=== PATIENT | female | born 1990 | race Caucasian/White ===

== ENCOUNTER 2018-10-17 10:53 | Inpatient (IN) | payer BC ==
[2018-10-18] MEDS ORDERED: Sodium Chloride 0.9% 10 ML Syringe FLUSH PRN (00:54)
[2018-10-18] MEDS ORDERED: Citric Acid/Sodium Citrate Solution 30 ML Cup PO ONE ×2 (00:54→06:30)
[2018-10-18] MEDS ORDERED: Metoclopramide 10 MG/2 ML SDV IVPUSH ONE ×2 (00:54→06:30)
[2018-10-18] MEDS ORDERED: Oxytocin/Lactated Ringers 10 UNIT/1,000 ML BAG IV SCH (01:00)
[2018-10-18] MEDS: Lactated Ringers 1,000 ML IV SCH ×2 (06:51→07:18)
[2018-10-18] MEDS ORDERED: ceFAZolin 2 GM in Premix Bag 1 BAG IV ONE (07:00)
--- NOTE | 2018-10-18 07:01 | PCM.OPNOTE ---
- General Post-Op/Procedure Note Date of Surgery/Procedure: 10/18/18 Operative Procedure(s): Primary low transverse Findings: Baby boy in a breech presentation. APGARS of 9 & 9. Weight of 8 lbs 3 oz. Normal appearance of the uterus, fallopian tubes, and ovaries. Pre Op Diagnosis: 39 weeks gestation. 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 Speed/safety of procedure. Pathology: Cord blood collected. Placenta discarded. Fluid Replacement, Intraop: 1,800 Output, Urine Amount: 300 EBL in mLs: 700 Complications: None Condition: Good Free Text/Narrative:: The risks, benefits, indications, potential complications, and alternatives were explained to the patient and informed consent obtained. After induction of anesthesia, the patient was placed in a supine position and then draped and prepped in the usual sterile manner. A Pfannenstiel incision was made and carried down through the subcutaneous tissue to the fascia. Fascial incision was made and extended transversely. The fascia was from the underlying rectus tissue superiorly and inferiorly. The peritoneum was identified and entered. Peritoneal incision was extended longitudinally. The utero-vesical peritoneal reflection was incised transversely and the bladder flap was bluntly freed from the lower uterine segment. A low transverse uterine incision was made sharply with a scalpel and extended bluntly in a cephalocaudad direction. A baby boy was delivered from a breech presentation with standard maneuvers. APGARS as above. After the umbilical cord was clamped and cut cord blood was obtained for evaluation. The placenta was removed intact and appeared normal. The uterus was exteriorized and cleared of clots. The uterine outline, tubes and ovaries appeared normal. The uterine incision was closed with running locked sutures of 0 Vicryl. Hemostasis was obtained with a second imbricating layer of 0 vicryl.. The uterus was then placed back into the abdomen. The infracolic gutters were cleared of blood clots. The fascia was then reapproximated with running sutures of 0 Vicryl. The sucutaneous tissue was irrigated with sterile warm normal saline, hemostasis obtained with cautery. This layer was also closed with a running 0 vicryl. The skin was reapproximated with running Subcuticular 4-0 monocryl sutures. Instrument, sponge, and needle counts were correct prior the abdominal closure and at the conclusion of the case.
[2018-10-18] MEDS ORDERED: Morphine PF 10 MG/10 ML SDV ONE (07:16)
[2018-10-18] MEDS ORDERED: Oxytocin 10 Units/1 ML SDV ONE ×2 (07:17→07:55)
[2018-10-18] MEDS ORDERED: ceFAZolin 1 GM Vial ONE (07:18)
[2018-10-18] MEDS ORDERED: Bupivacaine 0.75%/D5W 2 ML Amp ONE (07:19)
--- NOTE | 2018-10-18 07:33 | PCM.PREANE ---
Preanesthetic Assessment - Procedure Proposed Procedure: C Section - Anesthesia/Transfusion/Family Hx Anesthesia History: Prior Anesthesia Without Reaction Family History of Anesthesia Reaction: No Transfusion History: No Prior Transfusion(s) Intubation History: Unknown - Review of Systems General: Other (cough/cold no fever in the last week ) Pulmonary: No Symptoms Cardiovascular: No Symptoms Gastrointestinal: Other (heartburn during , none currently ) Neurological: No Symptoms Other: Reports: None - Physical Assessment NPO Status Date: 10/18/18 NPO Status Time: 00:00 Pulse: 101 O2 Sat by Pulse Oximetry: 99 Respiratory Rate: 16 Blood Pressure: 119/77 Temperature: 37.3 C Vital Signs: Last Vital Signs Temp 37.3 C 10/18/18 05:37 Pulse 101 H 10/18/18 05:37 Resp 16 10/18/18 05:37 BP 119/77 10/18/18 05:37 Pulse Ox 99 10/18/18 05:37 Height: 1.63 m Weight: 86.364 kg ASA Class: 2 Mental Status: Alert & Oriented x3 Airway Class: Mallampati = 1 Dentition: Reports: Normal Dentition Thyro-Mental Finger Breadths: 3 Mouth Opening Finger Breadths: 4 ROM/Head Extension: Full Lungs: Clear to Auscultation, Normal Respiratory Effort Cardiovascular: Regular Rate, Regular Rhythm, Tachycardia - Lab Values: Laboratory Last Values WBC 12.94 K/mm3 (3.98-10.04) H 10/18/18 05:40 RBC 3.90 M/mm3 (3.98-5.22) L 10/18/18 05:40 Hgb 11.2 gm/L (11.2-15.7) 10/18/18 05:40 Hct 33.8 % (34.1-44.9) L 10/18/18 05:40 MCV 86.7 fl (79.4-94.8) 10/18/18 05:40 MCH 28.7 pg (25.6-32.2) 10/18/18 05:40 MCHC 33.1 g/dl (32.2-35.5) 10/18/18 05:40 RDW Std Deviation 43.0 fL (36.4-46.3) 10/18/18 05:40 Plt Count 226 K/mm3 (182-369) 10/18/18 05:40 MPV 9.9 fl (9.4-12.3) 10/18/18 05:40 Neut % (Auto) 71.7 % (34.0-71.1) H 10/18/18 05:40 Lymph % (Auto) 20.4 % (19.3-51.7) 10/18/18 05:40 Colbert % (Auto) 6.7 % (4.7-12.5) 10/18/18 05:40 Eos % (Auto) 0.5 (0.7-5.8) L 10/18/18 05:40 Baso % (Auto) 0.2 % (0.1-1.2) 10/18/18 05:40 Neut # (Auto) 9.27 K/mm3 (1.56-6.13) H 10/18/18 05:40 Lymph # (Auto) 2.64 K/mm3 (1.18-3.74) 10/18/18 05:40 Colbert # (Auto) 0.87 K/mm3 (0.24-0.36) H 10/18/18 05:40 Eos # (Auto) 0.07 K/mm3 (0.04-0.36) 10/18/18 05:40 Baso # (Auto) 0.02 K/mm3 (0.01-0.08) 10/18/18 05:40 Blood Type A POSITIVE 10/18/18 05:40 Gel Antibody Screen Negative 10/18/18 05:40 - Allergies Allergies/Adverse Reactions: Allergies Allergy/AdvReac Type Severity Reaction Status Date / Time No Known Allergies Allergy Verified 10/18/18 01:30 - Blood Blood Available: No - Anesthesia Plan Pre-Op Medication Ordered: None - Acknowledgements Anesthesia Type Planned: Spinal Pt an Appropriate Candidate for the Planned Anesthesia: Yes Alternatives and Risks of Anesthesia Discussed w Pt/Guardian: Yes Pt/Guardian Understands and Agrees with Anesthesia Plan: Yes PreAnesthesia Questionnaire HEENT History: Reports: Impaired Vision Other HEENT History: wears glasses - Past Surgical History Musculoskeletal Surgical History: Reports: Other (See Below) Other Musculoskeletal Surgeries/Procedures:: Pilonidal cyst removal 2006 - SUBSTANCE USE Smoking Status *Q: Never Smoker Second Hand Smoke Exposure: No Recreational Drug Use History: No - HOME MEDS Home Medications: Home Meds Calcium Carbonate/Vitamin D3 [Calcium 500 + Vit D Caplet] 1 tab PO DAILY [History] Docusate Sodium [Colace] 1 tab PO DAILY 10/18/18 [History] PNV95/Ferrous Fumarate/FA [ Tablet] 1 tab PO DAILY 10/18/18 [History] - CURRENT (IN HOUSE) MEDS Current Meds: Current Medications Cefazolin Sodium/Dextrose 2 gm (/ Premix) 50 mls @ 100 mls/hr IV ONETIME ONE Stop: 10/18/18 07:29 Lactated Ringer's (Ringers, Lactated) 1,000 mls @ 125 mls/hr IV ASDIRECTED AMEE Last Admin: 10/18/18 07:18 Dose: 125 mls/hr Oxytocin/Lactated Ringer's (Pitocin In Lr 10 Units/1,000 Ml) 10 unit in 1,000 mls @ 100 mls/hr IV ASDIRECTED AMEE; Protocol Sodium Chloride (Saline Flush) 10 ml FLUSH ASDIRECTED PRN PRN Reason: Keep Vein Open Discontinued Medications Bupivacaine HCl/Dextrose (Marcaine 0.75% Spinal) Confirm Administered Dose 2 ml .ROUTE .STK-MED ONE Stop: 10/18/18 07:20 Cefazolin Sodium (Ancef) Confirm Administered Dose 2 gm .ROUTE .STK-MED ONE Stop: 10/18/18 07:19 Citric Acid/Sodium Citrate (Bicitra Solution) 30 ml PO ONETIME ONE Stop: 10/18/18 06:31 Last Admin: 10/18/18 07:11 Dose: 30 ml Metoclopramide HCl (Reglan) 10 mg IVPUSH ONETIME ONE Stop: 10/18/18 06:31 Last Admin: 10/18/18 07:12 Dose: 10 mg Morphine Sulfate (Duramorph Pf) Confirm Administered Dose 10 mg .ROUTE .STK-MED ONE Stop: 10/18/18 07:17 Oxytocin (Pitocin) Confirm Administered Dose 20 unit .ROUTE .STK-MED ONE Stop: 10/18/18 07:18
[2018-10-18] MEDS ORDERED: Phenylephrine/Normal Saline 100 MCG/ML 10 ML Syringe ONE (07:54)
[2018-10-18] MEDS ORDERED: ePHEDrine/Normal Saline 25 MG/5 ML Syringe ONE (07:54)
[2018-10-18] MEDS ORDERED: Ketorolac 30 MG/ML SDV ONE (08:00)
[2018-10-18] MEDS ORDERED: Lactated Ringers 1,000 ML ONE (08:13)
[2018-10-18] MEDS ORDERED: Ondansetron 4 MG/2 ML SDV IVPUSH PRN (08:48)
[2018-10-18] MEDS ORDERED: diphenhydrAMINE 50 MG/ML SDV IVPUSH PRN ×2 (08:48→10:24)
--- NOTE | 2018-10-18 08:48 | PCM.POSTAN ---
POST ANESTHESIA ASSESSMENT - MENTAL STATUS Mental Status: Alert - VITAL SIGNS Pulse Rate: 78 SaO2: 100 Resp Rate: 18 Blood Pressure: 108/49 Temperature: 36.6 C - RESPIRATORY Respiratory Status: Respiratory Rate WNL, Airway Patent, O2 Saturation Stable - CARDIOVASCULAR CV Status: Pulse Rate WNL, Blood Pressure Stable - GASTROINTESTINAL GI Status: No Symptoms - PAIN Pain Score: 0 - POST OP HYDRATION Hydration Status: Adequate & Stable
[2018-10-18] MEDS ORDERED: Lanolin 100% Cream 7 GM Tube TOP PRN (10:24)
[2018-10-18] MEDS ORDERED: Ibuprofen 600 MG Tab PO PRN (10:24)
[2018-10-18] MEDS ORDERED: Naloxone 0.4 MG/ML SDV IVPUSH PRN (10:24)
[2018-10-18] MEDS ORDERED: Dextrose 5%-Lactated Ringers 1,000 ML IV SCH (10:24)
[2018-10-18] MEDS: Ketorolac 30 MG/ML SDV IVPUSH SCH ×2 (14:40→20:28)
[2018-10-19] MEDS: Ketorolac 30 MG/ML SDV IVPUSH SCH (02:27)
--- NOTE | 2018-10-19 07:11 | PCM.PNPP ---
- General Info Date of Service: 10/19/18 Functional Status: Reports: Pain Controlled, Tolerating Diet, Ambulating, Urinating - Review of Systems General: Reports: No Symptoms Pulmonary: Reports: No Symptoms Cardiovascular: Reports: No Symptoms Gastrointestinal: Reports: Abdominal Pain (managed with medications) Genitourinary: Reports: No Symptoms Musculoskeletal: Reports: No Symptoms - Patient Data Vital Signs - Most Recent: Last Vital Signs Temp 37.2 C 10/19/18 04:37 Pulse 104 H 10/19/18 05:07 Resp 16 10/19/18 06:00 BP 115/67 10/19/18 04:37 Pulse Ox 99 10/19/18 06:00 Weight - Most Recent: 86.364 kg I&O - Last 24 Hours: Intake & Output 10/18/18 10/19/18 10/19/18 22:59 06:59 14:59 Intake Total 3300 Output Total 4050 1200 Balance -750 -1200 Lab Results - Last 24 Hours: Laboratory Results - last 24 hr 10/18/18 10/19/18 Range/Units 05:40 06:24 WBC 17.51 H (3.98-10.04) K/mm3 RBC 3.31 L (3.98-5.22) M/mm3 Hgb 9.3 L (11.2-15.7) gm/L Hct 29.1 L (34.1-44.9) % MCV 87.9 (79.4-94.8) fl MCH 28.1 (25.6-32.2) pg MCHC 32.0 L (32.2-35.5) g/dl RDW Std Deviation 43.2 (36.4-46.3) fL Plt Count 196 (182-369) K/mm3 MPV 9.5 (9.4-12.3) fl RPR Non-reactive (NONREACTIVE) Med Orders - Current: Current Medications Diphenhydramine HCl (Benadryl) 25 mg IVPUSH Q6H PRN PRN Reason: Itching or Nausea Docusate Sodium (Colace) 100 mg PO Q12H PRN PRN Reason: Constipation Emollient Ointment (Lansinoh Hpa) 0 gm TOP ASDIRECTED PRN PRN Reason: Sore Nipples Ibuprofen (Motrin) 600 mg PO Q6H PRN PRN Reason: mild pain or fever Naloxone HCl (Narcan) 0.1 mg IVPUSH SEECOMMENT PRN PRN Reason: Respiratory Depression Oxycodone/Acetaminophen (Percocet 325-5 Mg) 2 tab PO Q4H PRN PRN Reason: Pain (moderate 4-6) Discontinued Medications Bupivacaine HCl/Dextrose (Marcaine 0.75% Spinal) Confirm Administered Dose 2 ml .ROUTE .STK-MED ONE Stop: 10/18/18 07:20 Cefazolin Sodium (Ancef) Confirm Administered Dose 2 gm .ROUTE .STK-MED ONE Stop: 10/18/18 07:19 Citric Acid/Sodium Citrate (Bicitra Solution) 30 ml PO ONETIME ONE Stop: 10/18/18 06:31 Last Admin: 10/18/18 07:11 Dose: 30 ml Diphenhydramine HCl (Benadryl) 25 mg IVPUSH Q6H PRN PRN Reason: pruritis Stop: 10/18/18 11:30 Ephedrine Sulfate (Ephedrine In Ns) Confirm Administered Dose 25 mg .ROUTE .STK- MED ONE Stop: 10/18/18 07:55 Cefazolin Sodium/Dextrose 2 gm (/ Premix) 50 mls @ 100 mls/hr IV ONETIME ONE Stop: 10/18/18 07:29 Last Admin: 10/18/18 11:03 Dose: Not Given Lactated Ringer's (Ringers, Lactated) 1,000 mls @ 125 mls/hr IV ASDIRECTED PENDING SALE TO [facility] Last Admin: 10/18/18 07:18 Dose: 125 mls/hr Oxytocin/Lactated Ringer's (Pitocin In Lr 10 Units/1,000 Ml) 10 unit in 1,000 mls @ 100 mls/hr IV ASDIRECTED PENDING SALE TO [facility]; Protocol Lactated Ringer's (Ringers, Lactated) Confirm Administered Dose 1,000 mls @ as directed .ROUTE .STK-MED ONE Stop: 10/18/18 08:14 Dextrose/Lactated Ringer's (Dextrose 5%-Lactated Ringers) 1,000 mls @ 125 mls/ hr IV ASDIRECTED PENDING SALE TO [facility] Stop: 10/18/18 18:23 Last Admin: 10/18/18 14:37 Dose: 125 mls/hr Ibuprofen (Motrin) 600 mg PO Q6H PRN PRN Reason: mild pain or fever Ketorolac Tromethamine (Toradol) Confirm Administered Dose 30 mg .ROUTE .STK- MED ONE Stop: 10/18/18 08:01 Ketorolac Tromethamine (Toradol) 30 mg IVPUSH Q6H AMEE Stop: 10/19/18 02:31 Last Admin: 10/19/18 02:27 Dose: 30 mg Metoclopramide HCl (Reglan) 10 mg IVPUSH ONETIME ONE Stop: 10/18/18 06:31 Last Admin: 10/18/18 07:12 Dose: 10 mg Morphine Sulfate (Duramorph Pf) Confirm Administered Dose 10 mg .ROUTE .STK-MED ONE Stop: 10/18/18 07:17 Ondansetron HCl (Zofran) 4 mg IVPUSH ONETIME PRN PRN Reason: Nausea/Vomiting Stop: 10/18/18 11:30 Oxytocin (Pitocin) Confirm Administered Dose 20 unit .ROUTE .STK-MED ONE Stop: 10/18/18 07:18 Oxytocin (Pitocin) Confirm Administered Dose 10 unit .ROUTE .STK-MED ONE Stop: 10/18/18 07:56 Phenylephrine HCl (Phenylephrine In Ns 100 Mcg/Ml) Confirm Administered Dose 1 mg .ROUTE .STK-MED ONE Stop: 10/18/18 07:55 Sodium Chloride (Saline Flush) 10 ml FLUSH ASDIRECTED PRN PRN Reason: Keep Vein Open - Interaction Infant Disposition, : [place] in Room with Family Interaction: Holding Feeding: Attempted ; Nursed Fair/Poor Support Person: - Recovery Exam Fundal Tone: Firm Fundal Level: 2 Fingerbreadths Below Umbilicus Fundal Placement: Midline Lochia Amount: Small Lochia Color: Rubra/Red Perineum Description: Intact, Minimal Bruising/Swelling Bladder Status: Voiding Urinary Elimination: Voided - Exam General: Alert, Oriented, Cooperative Lungs: Clear to Auscultation, Normal Respiratory Effort Cardiovascular: Regular Rate, Regular Rhythm GI/Abdominal Exam: Soft, Tender (appropriate) Extremities: Normal Inspection Skin: Warm, Dry, Intact Wound/Incisions: Dressing Dry and Intact - Problem List & Annotations (1) 39 weeks gestation of SNOMED Code(s): 01473482 Code(s): Z3A.39 - 39 WEEKS GESTATION OF Status: Acute Current Visit: Yes (2) Breech presentation SNOMED Code(s): 1384309 Code(s): O32.1XX0 - MATERNAL CARE FOR BREECH PRESENTATION, UNSP Status: Acute Current Visit: Yes Qualifiers: Fetus number: single or unspecified fetus Qualified Code(s): O32.1XX0 - Maternal care for breech presentation, not applicable or unspecified (3) S/P primary low transverse SNOMED Code(s): 792093256, 88939216, 023708379, 839205797, 827924446 Code(s): Z98.891 - HISTORY OF UTERINE SCAR FROM PREVIOUS SURGERY Status: Acute Current Visit: Yes - Problem List Review Problem List Initiated/Reviewed/Updated: Yes - My Orders Last 24 Hours: My Active Orders 10/18/18 10:24 Activity as Tolerated [RC] .Routine Antiembolic Devices [RC] PER UNIT ROUTINE Communication Order [RC] PER UNIT ROUTINE Intake and Output [RC] Q4HR Notify Provider Intake and Out [RC] ASDIRECTED RT Incentive Spirometry [RC] Q2HWA Acetaminophen/oxyCODONE [Percocet 325-5 MG] 2 tab PO Q4H PRN Docusate Sodium [Colace] 100 mg PO Q12H PRN Lanolin [Lansinoh HPA] See Dose Instructions TOP ASDIRECTED PRN Naloxone [Narcan] 0.1 mg IVPUSH SEECOMMENT PRN diphenhydrAMINE [Benadryl] 25 mg IVPUSH Q6H PRN Assess Lochia [WOMSER] Per Unit Routine Assess Uterine Involution [WOMSER] Per Unit Routine Breast Pump [WOMSER] Per Unit Routine Peripheral IV Discontinue [OM.PC] Routine Sequential Compression Device [OM.PC] Per Unit Routine 10/18/18 Breakfast Regular Diet [DIET] 10/19/18 08:30 Ibuprofen [Motrin] 600 mg PO Q6H PRN 10/19/18 08:42 Urinary Catheter Removal [RC] Per Unit Routine - Assessment Assessment:: POD#1 from PLTCS for breech presentation - Plan Plan:: * Routine cares * Encourage breast feeding * Discharge home in 1-2 days
[2018-10-19] MEDS: Acetaminophen/oxyCODONE 325-5 MG Tab PO PRN ×3 (08:16→22:04)
[2018-10-19] MEDS: Docusate Sodium 100 MG Cap PO PRN ×2 (08:17→22:05)
--- NOTE | 2018-10-19 10:21 | PCM48HPAN ---
Post Anesthesia Note - EVALUATION WITHIN 48HRS OF ANESTHETIC Vital Signs in Normal Range: Yes Patient Participated in Evaluation: Yes Respiratory Function Stable: Yes Airway Patent: Yes Cardiovascular Function Stable: Yes Hydration Status Stable: Yes Pain Control Satisfactory: Yes Nausea and Vomiting Control Satisfactory: Yes Mental Status Recovered: Yes Pulse Rate: 104 Resp Rate: 15 Temperature: 37.2 C Blood Pressure: 115/67 - COMMENTS/OBSERVATIONS Free Text/Narrative:: no anesthesia complications noted
[2018-10-19] MEDS: Ibuprofen 600 MG Tab PO PRN ×2 (11:37→17:54)
--- NOTE | 2018-10-20 04:35 | PCM.DCSUM1 ---
Discharge Summary - Discharge Data Discharge Date: 10/20/18 Discharge Disposition: Home, Self-Care 01 Condition: Good - Discharge Diagnosis/Problem(s) (1) 39 weeks gestation of SNOMED Code(s): 53835588 ICD Code: Z3A.39 - 39 WEEKS GESTATION OF Status: Acute Current Visit: Yes (2) Breech presentation SNOMED Code(s): 4471593 ICD Code: O32.1XX0 - MATERNAL CARE FOR BREECH PRESENTATION, UNSP Status: Acute Current Visit: Yes Qualifiers: Fetus number: single or unspecified fetus Qualified Code(s): O32.1XX0 - Maternal care for breech presentation, not applicable or unspecified (3) S/P primary low transverse SNOMED Code(s): 524337847, 77169891, 788648609, 228040756, 409891267 ICD Code: Z98.891 - HISTORY OF UTERINE SCAR FROM PREVIOUS SURGERY Status: Acute Current Visit: Yes - Patient Summary/Data Operative Procedure(s) Performed: Primary low transverse Complications: None Consults: None Recommended Follow-up Testing/Procedures: Follow up in 1-2 weeks for post op check Hospital Course: 28 y/o admitted for planned PLTCS due to breech presentation. Procedure was uncomplicated. See delivery note. Post op she did well. Was discharged home on POD#2 - Patient Instructions Diet: Regular Diet as Tolerated Activity: No Lifting Over 10 Pounds Activity, Other: Pelvic Rest for 6 weeks Driving: Do Not Drive (While taking narcotics ) Showering/Bathing: May Shower, No Tub Bathing/Swimming Wound/Incision Care: Keep Operative Site/Wound Site Clean and Dry Notify Provider of: Fever, Increased Pain, Swelling and Redness, Drainage, Nausea and/or Vomiting - Discharge Plan *PRESCRIPTION DRUG MONITORING PROGRAM REVIEWED*: No *COPY OF PRESCRIPTION DRUG MONITORING REPORT IN PATIENT LORI: No Prescriptions/Med Rec: Acetaminophen/oxyCODONE [Percocet 325-5 MG] 1 - 2 tab PO Q4H PRN #25 tablet PRN Reason: Pain (Moderate 4-6) Home Medications: Home Meds Calcium Carbonate/Vitamin D3 [Calcium 500 + Vit D Caplet] 1 tab PO DAILY [History] Docusate Sodium [Colace] 1 tab PO DAILY 10/18/18 [History] PNV95/Ferrous Fumarate/FA [ Tablet] 1 tab PO DAILY 10/18/18 [History] Acetaminophen/oxyCODONE [Percocet 325-5 MG] 1 - 2 tab PO Q4H PRN #25 tablet [Rx] Ibuprofen [Motrin] 600 mg PO Q6H PRN tablet 10/19/18 [Rx] Referrals: Alyssa Hopkins MD [Primary Care Provider] - (1-2 weeks for incision check) - Discharge Summary/Plan Comment DC Time >30 min.: No - Patient Data Vitals - Most Recent: Last Vital Signs Temp 37.1 C 10/19/18 20:41 Pulse 107 H 10/19/18 20:41 Resp 16 10/19/18 20:41 BP 118/54 L 10/19/18 20:41 Pulse Ox 98 10/19/18 20:41 Weight - Most Recent: 86.364 kg I&O - Last 24 hours: Intake & Output 10/19/18 10/19/18 10/20/18 14:59 22:59 06:59 Intake Total 120 60 Output Total 1100 Balance -980 60 Lab Results - Last 24 hrs: Laboratory Results - last 24 hr 10/19/18 Range/Units 06:24 WBC 17.51 H (3.98-10.04) K/mm3 RBC 3.31 L (3.98-5.22) M/mm3 Hgb 9.3 L (11.2-15.7) gm/L Hct 29.1 L (34.1-44.9) % MCV 87.9 (79.4-94.8) fl MCH 28.1 (25.6-32.2) pg MCHC 32.0 L (32.2-35.5) g/dl RDW Std Deviation 43.2 (36.4-46.3) fL Plt Count 196 (182-369) K/mm3 MPV 9.5 (9.4-12.3) fl Med Orders - Current: Current Medications Diphenhydramine HCl (Benadryl) 25 mg IVPUSH Q6H PRN PRN Reason: Itching or Nausea Docusate Sodium (Colace) 100 mg PO Q12H PRN PRN Reason: Constipation Last Admin: 10/19/18 22:05 Dose: 100 mg Emollient Ointment (Lansinoh Hpa) 0 gm TOP ASDIRECTED PRN PRN Reason: Sore Nipples Ibuprofen (Motrin) 600 mg PO Q6H PRN PRN Reason: mild pain or fever Last Admin: 10/19/18 17:54 Dose: 600 mg Naloxone HCl (Narcan) 0.1 mg IVPUSH SEECOMMENT PRN PRN Reason: Respiratory Depression Oxycodone/Acetaminophen (Percocet 325-5 Mg) 2 tab PO Q4H PRN PRN Reason: Pain (moderate 4-6) Last Admin: 10/19/18 22:04 Dose: 1 tab Discontinued Medications Bupivacaine HCl/Dextrose (Marcaine 0.75% Spinal) Confirm Administered Dose 2 ml .ROUTE .STK-MED ONE Stop: 10/18/18 07:20 Cefazolin Sodium (Ancef) Confirm Administered Dose 2 gm .ROUTE .STK-MED ONE Stop: 10/18/18 07:19 Citric Acid/Sodium Citrate (Bicitra Solution) 30 ml PO ONETIME ONE Stop: 10/18/18 06:31 Last Admin: 10/18/18 07:11 Dose: 30 ml Diphenhydramine HCl (Benadryl) 25 mg IVPUSH Q6H PRN PRN Reason: pruritis Stop: 10/18/18 11:30 Ephedrine Sulfate (Ephedrine In Ns) Confirm Administered Dose 25 mg .ROUTE .STK- MED ONE Stop: 10/18/18 07:55 Cefazolin Sodium/Dextrose 2 gm (/ Premix) 50 mls @ 100 mls/hr IV ONETIME ONE Stop: 10/18/18 07:29 Last Admin: 10/18/18 11:03 Dose: Not Given Lactated Ringer's (Ringers, Lactated) 1,000 mls @ 125 mls/hr IV ASDIRECTED AMEE Last Admin: 10/18/18 07:18 Dose: 125 mls/hr Oxytocin/Lactated Ringer's (Pitocin In Lr 10 Units/1,000 Ml) 10 unit in 1,000 mls @ 100 mls/hr IV ASDIRECTED AMEE; Protocol Lactated Ringer's (Ringers, Lactated) Confirm Administered Dose 1,000 mls @ as directed .ROUTE .STK-MED ONE Stop: 10/18/18 08:14 Dextrose/Lactated Ringer's (Dextrose 5%-Lactated Ringers) 1,000 mls @ 125 mls/ hr IV ASDIRECTED [facility] Stop: 10/18/18 18:23 Last Admin: 10/18/18 14:37 Dose: 125 mls/hr Ibuprofen (Motrin) 600 mg PO Q6H PRN PRN Reason: mild pain or fever Ketorolac Tromethamine (Toradol) Confirm Administered Dose 30 mg .ROUTE .STK- MED ONE Stop: 10/18/18 08:01 Ketorolac Tromethamine (Toradol) 30 mg IVPUSH Q6H [facility] Stop: 10/19/18 02:31 Last Admin: 10/19/18 02:27 Dose: 30 mg Metoclopramide HCl (Reglan) 10 mg IVPUSH ONETIME ONE Stop: 10/18/18 06:31 Last Admin: 10/18/18 07:12 Dose: 10 mg Morphine Sulfate (Duramorph Pf) Confirm Administered Dose 10 mg .ROUTE .STK-MED ONE Stop: 10/18/18 07:17 Ondansetron HCl (Zofran) 4 mg IVPUSH ONETIME PRN PRN Reason: Nausea/Vomiting Stop: 10/18/18 11:30 Oxytocin (Pitocin) Confirm Administered Dose 20 unit .ROUTE .STK-MED ONE Stop: 10/18/18 07:18 Oxytocin (Pitocin) Confirm Administered Dose 10 unit .ROUTE .STK-MED ONE Stop: 10/18/18 07:56 Phenylephrine HCl (Phenylephrine In Ns 100 Mcg/Ml) Confirm Administered Dose 1 mg .ROUTE .STK-MED ONE Stop: 10/18/18 07:55 Sodium Chloride (Saline Flush) 10 ml FLUSH ASDIRECTED PRN PRN Reason: Keep Vein Open
[2018-10-20] MEDS: Ibuprofen 600 MG Tab PO PRN (05:24)
[2018-10-20] MEDS: Acetaminophen/oxyCODONE 325-5 MG Tab PO PRN (09:21)
== END 2018-10-20 11:30 | disposition home or self-care (01) | DRG 540 ==
LOC: JD.OB 10-18 05:22
PROVIDERS: ADMIT Obstetrics & Gynecology; ATTEND Obstetrics & Gynecology
PROC: 10D00Z1 Extraction of Products of Conception, Low, Open Approach (ICD-10-PCS; principal; 2018-10-18)
DX: O32.1XX0 Maternal care for breech presentation, not applicable or unspecified (principal); Z3A.39 39 weeks gestation of pregnancy; Z37.0 Single live birth
CPT/HCPCS: 01961; 36415; 59025; 85025; 85027; 86592; 86850; 86900; 86901; A9270-GY; J0690; J1885; J2270; J2370; J2590; J2765; J7042; J7050; J7120

== ENCOUNTER 2020-08-22 20:09 | Inpatient (IN) | payer BC ==
[2020-08-22] MEDS ORDERED: Sodium Chloride 0.9% 10 ML Syringe FLUSH PRN (20:53)
[2020-08-22] MEDS ORDERED: Ondansetron 4 MG/2 ML SDV IVPUSH PRN (20:53)
[2020-08-22] MEDS ORDERED: Calcium Carbonate 500 MG Tab.Chew PO PRN (20:53)
[2020-08-22] MEDS ORDERED: Nalbuphine 10 MG/1 ML Vial IVPUSH PRN (20:53)
[2020-08-22] MEDS ORDERED: Lidocaine 1% 50 ML MDV INJECT ONE (20:53)
[2020-08-22] MEDS ORDERED: Oxytocin/Lactated Ringers 10 UNIT/1,000 ML BAG IV SCH (21:00)
[2020-08-22] MEDS ORDERED: ePHEDrine 50 MG/ML SDV IVPUSH PRN (21:03)
[2020-08-22] MEDS ORDERED: Bupivacaine/fentaNYL/NS 100 ML Bag EPIDUR PRN (21:03)
[2020-08-22] MEDS ORDERED: diphenhydrAMINE 50 MG/ML SDV IVPUSH PRN (21:03)
[2020-08-22] MEDS ORDERED: fentaNYL 100 MCG/2 ML SDV EPIDUR PRN (21:03)
[2020-08-22] MEDS: Lactated Ringers 1,000 ML IV SCH ×2 (21:30→22:35)
--- NOTE | 2020-08-22 22:01 | PCM.LDHP ---
L&D History of Present Illness - General Date of Service: 08/22/20 Admit Problem/Dx: Patient Status Order with Admit Dx/Problem 08/22/20 20:19 Patient Status [ADT] Routine 08/22/20 20:53 Patient Status [ADT] Routine Admission Diagnosis/Problem Admission Diagnosis/Problem Source of Information: Patient History Limitations: Reports: No Limitations - History of Present Illness Introduction:: Saritha Yeboah is a 30-year-old -0-0-1 female at 39 weeks 3 days (SHANNON 08/26/2020) by LMP consistent with a 8-week ultrasound who presents for evaluation of possible rupture membranes. She reports that at around 7:15 PM she had a small gush of fluid with some uterine cramping and has had continuous leaking of fluid since then. She reports that she is [place] every couple minutes and this started to become more intense after her water had broken. She denies any vaginal bleeding. She reports that she has been feeling good movement. Timing/Duration: Reports: sudden onset (With large gush of fluid), intermittent (Contractions every couple of minutes) Location, : Reports: Lower back, Pelvic, Uterus Quality: Reports: Pressure, Throbbing Severity: Severe Improves with: Denies: None Associated Symptoms: Reports: vaginal fluid, mild amount. Denies: vaginal bleeding, vaginal discharge Present Illness Comments:: Saritha Yeboah is a 30-year-old -0-0-1 female at 39 weeks 3 days (SHANNON 08/26/2020) by LMP consistent with an 8-week ultrasound who presents with spontaneous rupture membranes. She has had routine care with Dr. Hopkins starting at 8 weeks gestational age. She had an early ultrasound done at 8 weeks gestational age that showed a single intrauterine that was consistent with her LMP dating. She has not had any significant problems during this . She received the Tdap vaccine on 06/11/2020. She was diagnosed with COVID-19 infection on 05/31/2020 and did not have any significant co mplications from this. She does have a history of primary section for breech presentation. This was a scheduled section. She desires a trial of labor after section in this . She had discussed risks and benefits of a trial of labor after section with her primary provider. This is complicated by: * History of section x1. History of previous section performed on 10/18/2018 due to breech presentation. This was a scheduled section. She had a double layer closure of the uterine incision with this section. Patient had previously discussed risks and benefits of a trial of labor after section and desire to proceed with a TOLAC * COVID-19 infection during -patient diagnosed with COVID-19 infection around 05/31/2020 and did not have any significant complications from this infection labs Blood type: A+ Antibody screen: Negative First trimester hematocrit/hemoglobin: 36.9%/12.5 on 02/20/2020 Platelets: 248 on 02/20/2020 Urine culture: Negative Rubella status: Immune Hepatitis B surface antigen: Negative RPR: Negative HIV: Negative Gonorrhea: Negative Chlamydia: Negative Genetic testing: Cell free DNA normal One hour glucose tolerance test: 97 Second trimester hemoglobin: 11.1 on 05/28/2020 Platelets: 251 on 05/28/2020 GBS status: Negative [employer] history -0-0-1 G1: 10/18/2018, primary section for breech presentation, 39 weeks 3 days, male infant, 8 pounds 3 ounces, spinal injection for anesthesia, no complications G2: Current - Related Data Allergies/Adverse Reactions: Allergies Allergy/AdvReac Type Severity Reaction Status Date / Time No Known Allergies Allergy Verified 10/18/18 01:30 Home Medications: Home Meds Calcium Carbonate/Vitamin D3 [Calcium 500-Vit D3 125 Caplet] 1 tab PO DAILY 10/18/18 [History] Docusate Sodium [Colace] 1 tab PO DAILY 10/18/18 [History] Pnv No.95/Ferrous Fum/Folic AC [ Tablet] 1 tab PO DAILY 10/18/18 [History] Acetaminophen/oxyCODONE [Percocet 325-5 MG] 1 - 2 tab PO Q4H PRN #25 tablet 10/19/18 [Rx] Ibuprofen [Motrin] 600 mg PO Q6H PRN tablet 10/19/18 [Rx] Past Medical History HEENT History: Reports: Impaired Vision Other HEENT History: wears glasses [employer] History: Reports: : 2 Para: 1 - Past Surgical History HEENT Surgical History: Reports: Myringotomy w Tube(s) Female Surgical History: Reports: Section (X1) Musculoskeletal Surgical History: Reports: Other (See Below) Other Musculoskeletal Surgeries/Procedures:: Pilonidal cyst removal 2006 Social & Family History - Family History Family Medical History: No Pertinent Family History - Tobacco Use Tobacco Use Status *Q: Never Tobacco User - Tobacco Core Measures Tobacco Use/Smoking Within Last 30 Days: No Smokeless Tobacco Use in Last 30 Days: No - Caffeine Use Caffeine Use: Reports: None - Alcohol Use Alcohol Use History: No - Recreational Drug Use Recreational Drug Use: No Drug Use in Last 12 Months: No - Living Situation & Occupation Living situation: Reports: , with Spouse, with Family Occupation: Employed H&P Review of Systems - Review of Systems: Review Of Systems: See Below General: Denies: Fever, Chills, Malaise, Weakness, Fatigue HEENT: Reports: Contact Lenses. Denies: Headaches, Rhinitis, Post Nasal Drip, Sinus Congestion, Sore Throat, Visual Changes Pulmonary: Denies: Shortness of Breath, Wheezing, Pleuritic Chest Pain, Cough Cardiovascular: Denies: Chest Pain, Palpitations, Dyspnea on Exertion, Orthopnea Gastrointestinal: Reports: Constipation, Nausea (Intermittent throughout her ), Vomiting (1 episode of emesis on 08/18/2020). Denies: Abdominal Pain, Diarrhea Genitourinary: Denies: Dysuria, Frequency, Burning, Pain, Urgency Skin: Denies: Rash, Lesions Psychiatric: Denies: Depression, Anxiety L&D Exam - Exam Exam: See Below - Vital Signs Weight: 85.729 kg - OB Specific Contraction Duration (sec): 60-75 Contraction Frequency (min): 2-3 Contraction Intensity: Strong Movement: Active Heart Tones: Present Heart Tones per Min: 135 (+15 x 15 accelerations, intermittent variable decelerations with contractions) Heart Rate (FHR) Variability: Moderate (6-25 bmp) Presentation: Vertex - Ching Score Ching Score Cervix Position: Anterior Ching Score Consistency: Soft Ching Score Effacement: >80% (100%) Ching Score Dilation: > 5 cm (6 cm) Ching Score Infant's Station: +1, +2 (+1) Ching Score Total: 13 - Exam General: Alert, Oriented HEENT: Conjunctiva Clear, EOMI Neck: Supple, Trachea Midline Lungs: Clear to Auscultation, Normal Respiratory Effort Cardiovascular: Regular Rate, Regular Rhythm GI/Abdominal Exam: Soft, Non-Tender, No Distention, Other (Gravid). No: Guarding, Rigid, Rebound Genitourinary: Normal external exam Extremities: Normal Inspection, No Pedal Edema Skin: Warm, Dry, Intact Psychiatric: Alert, Normal Affect, Normal Mood - Patient Data Lab Results Last 24 hrs: Laboratory Results - last 24 hr 08/22/20 Range/Units 21:05 WBC 17.10 H (3.98-10.04) K/mm3 RBC 4.24 (3.98-5.22) M/mm3 Hgb 12.3 D (11.2-15.7) gm/dl Hct 37.1 (34.1-44.9) % MCV 87.5 (79.4-94.8) fl MCH 29.0 (25.6-32.2) pg MCHC 33.2 (32.2-35.5) g/dl RDW Std Deviation 43.3 (36.4-46.3) fL Plt Count 252 (182-369) K/mm3 MPV 9.8 (9.4-12.3) fl Neut % (Auto) 72.7 H (34.0-71.1) % Lymph % (Auto) 20.1 (19.3-51.7) % [place] % (Auto) 6.1 (4.7-12.5) % Eos % (Auto) 0.4 L (0.7-5.8) Baso % (Auto) 0.1 (0.1-1.2) % Neut # (Auto) 12.43 H (1.56-6.13) K/mm3 Lymph # (Auto) 3.43 (1.18-3.74) K/mm3 [place] # (Auto) 1.05 H (0.24-0.36) K/mm3 Eos # (Auto) 0.07 (0.04-0.36) K/mm3 Baso # (Auto) 0.02 (0.01-0.08) K/mm3 Result Diagrams: 08/22/20 21:05 - Problem List (1) History of section complicating SNOMED Code(s): 819013351, 539273428 ICD Code: O34.219 - MATERNAL CARE FOR UNSP TYPE SCAR FROM PREVIOUS DEL Status: Acute Current Visit: Yes (2) History of section SNOMED Code(s): 887223472 ICD Code: Z98.891 - HISTORY OF UTERINE SCAR FROM PREVIOUS SURGERY Status: Acute Current Visit: Yes (3) 39 weeks gestation of SNOMED Code(s): 19873755 ICD Code: Z3A.39 - 39 WEEKS GESTATION OF Status: Acute Current Visit: No Problem List Initiated/Reviewed/Updated: Yes Orders Last 24hrs: Active Orders 24 hr Category Date Time Status Patient Status [ADT] Routine ADT 08/22/20 20:53 Active Activity as Tolerated [RC] PFP Care 08/22/20 20:53 Active Communication Order [RC] ASDIRECTED Care 08/22/20 20:53 Active Heart Tones [RC] ASDIRECTED Care 08/22/20 20:53 Active Non Stress Test [RC] PER UNIT ROUTINE Care 08/22/20 20:19 Active Notify Provider [RC] ASDIRECTED Care 08/22/20 21:03 Active Notify Provider [RC] PFP Care 08/22/20 20:53 Active Notify Provider [RC] PRN Care 08/22/20 20:53 Active Peripheral IV Care [RC] . DIRECTED Care 08/22/20 20:53 Active Urinary Catheter Assessment [RC] ASDIRECTED Care 08/22/20 20:53 Active Vital Signs [RC] PER UNIT ROUTINE Care 08/22/20 20:19 Active Vital Signs [RC] PER UNIT ROUTINE Care 08/22/20 20:53 Active Regular Diet [DIET] Diet 08/23/20 Breakfast Active RAPID PLASMA REAGIN,RPR [CHEM] Routine Lab 08/22/20 21:05 Received Bupivacaine/fentaNYL/NS [fentaNYL/Bupivacaine/NS 2 MCG- Med 08/22/20 21:03 Active 0.125% 100 ML] 100 ml EPIDUR ASDIRECTED PRN Calcium Carbonate [Tums] Med 08/22/20 20:53 Active 1,000 mg PO Q2H PRN Lactated Ringers [Ringers, Lactated] 1,000 ml Med 08/22/20 21:00 Active IV ASDIRECTED Nalbuphine [Nubain] Med 08/22/20 20:53 Active 10 mg IVPUSH Q2H PRN Ondansetron [Zofran] Med 08/22/20 20:53 Active 4 mg IVPUSH Q4H PRN Oxytocin/Lactated Ringers [Pitocin in LR 10 Units/1,000 Med 08/22/20 21:00 Active ML] 10 unit in 1,000 ml IV .CONTINUOUS Sodium Chloride 0.9% [Saline Flush] Med 08/22/20 20:53 Active 10 ml FLUSH ASDIRECTED PRN diphenhydrAMINE [Benadryl] Med 08/22/20 21:03 Active 25 mg IVPUSH Q6H PRN ePHEDrine [ePHEDrine sulfate] Med 08/22/20 21:03 Active 5 mg IVPUSH ASDIRECTED PRN fentaNYL [Sublimaze] Med 08/22/20 21:03 Active 100 mcg EPIDUR Q3H PRN Electronic Heart Tones Ext w TOCO [WOMSER] Oth 08/22/20 20:53 Ordered Routine Electronic Heart Tones Internal [WOMSER] Per Unit Oth 08/22/20 20:53 Ordered Routine Peripheral IV Insertion Adult [OM.PC] Routine Oth 08/22/20 20:53 Ordered Resuscitation Status Routine Resus Stat 08/22/20 20:19 Ordered Medication Orders Calcium Carbonate/Glycine (Tums) 1,000 mg PO Q2H PRN PRN Reason: Indigestion Diphenhydramine HCl (Benadryl) 25 mg IVPUSH Q6H PRN PRN Reason: pruritis Ephedrine Sulfate (Ephedrine Sulfate) 5 mg IVPUSH ASDIRECTED PRN PRN Reason: Hypotension Fentanyl (Sublimaze) 100 mcg EPIDUR Q3H PRN PRN Reason: Pain Fentanyl/Bupivacaine HCl (Fentanyl/Bupivacaine/Ns 2 Mcg-0.125% 100 Ml) 100 ml EPIDUR ASDIRECTED PRN PRN Reason: Pain Lactated Ringer's (Ringers, Lactated) 1,000 mls @ 100 mls/hr IV ASDIRECTED AMEE Oxytocin/Lactated Ringer's (Pitocin In Lr 10 Units/1,000 Ml) 10 unit in 1,000 mls @ 500 mls/hr IV .CONTINUOUS AMEE Nalbuphine HCl (Nubain) 10 mg IVPUSH Q2H PRN PRN Reason: Pain Ondansetron HCl (Zofran) 4 mg IVPUSH Q4H PRN PRN Reason: Nausea/Vomiting Sodium Chloride (Saline Flush) 10 ml FLUSH ASDIRECTED PRN PRN Reason: Keep Vein Open Assessment/Plan Comment:: Saritha Yeboah is a 30-year-old -0-0-1 female at 39 weeks 3 days (SHANNON 08/26/2020) who presents with spontaneous rupture membranes with clear fluid and desires to undergo trial of labor after section Refer to observation for spontaneous rupture of membranes Reviewed risks, benefits and alternatives of trial of labor after section versus repeat section. Patient desired to proceed with trial of labor after section. Consents were signed on labor and delivery. Continuous monitoring Place IV and have Lactated Ringer's at 125 ml/hr May have small amounts of regular diet Activity as tolerated Patient desires epidural and received this shortly after initial exam by myself Plans to breast-feed after delivery Anticipate vaginal delivery unless otherwise indicated Mervin Barlow MD 10:32 PM 08/22/2020
--- NOTE | 2020-08-22 22:07 | PCM.PREANE ---
Preanesthetic Assessment - Procedure Proposed Procedure: deonna - Anesthesia/Transfusion/Family Hx Anesthesia History: Prior Anesthesia Without Reaction Family History of Anesthesia Reaction: No Transfusion History: No Prior Transfusion(s) Intubation History: Unknown - Review of Systems General: No Symptoms Pulmonary: No Symptoms Cardiovascular: No Symptoms Gastrointestinal: No Symptoms Neurological: No Symptoms Other: Reports: None - Physical Assessment Vital Signs: 121/61 99% 20 99 Height: 5 ft 4 in Weight: 85.729 kg ASA Class: 2 Mental Status: Alert & Oriented x3 Airway Class: Mallampati = 1 Dentition: Reports: Normal Dentition Thyro-Mental Finger Breadths: 3 Mouth Opening Finger Breadths: 3 ROM/Head Extension: Full Lungs: Clear to Auscultation, Normal Respiratory Effort Cardiovascular: Regular Rate, Regular Rhythm - Lab Values: Laboratory Last Values WBC 17.10 K/mm3 (3.98-10.04) H 08/22/20 21:05 RBC 4.24 M/mm3 (3.98-5.22) 08/22/20 21:05 Hgb 12.3 gm/dl (11.2-15.7) D 08/22/20 21:05 Hct 37.1 % (34.1-44.9) 08/22/20 21:05 MCV 87.5 fl (79.4-94.8) 08/22/20 21:05 MCH 29.0 pg (25.6-32.2) 08/22/20 21:05 MCHC 33.2 g/dl (32.2-35.5) 08/22/20 21:05 RDW Std Deviation 43.3 fL (36.4-46.3) 08/22/20 21:05 Plt Count 252 K/mm3 (182-369) 08/22/20 21:05 MPV 9.8 fl (9.4-12.3) 08/22/20 21:05 Neut % (Auto) 72.7 % (34.0-71.1) H 08/22/20 21:05 Lymph % (Auto) 20.1 % (19.3-51.7) 08/22/20 21: [place] % (Auto) 6.1 % (4.7-12.5) 08/22/20 21:05 Eos % (Auto) 0.4 (0.7-5.8) L 01/29/21 21:05 Baso % (Auto) 0.1 % (0.1-1.2) 08/22/20 21:05 Neut # (Auto) 12.43 K/mm3 (1.56-6.13) H 08/22/20 21:05 Lymph # (Auto) 3.43 K/mm3 (1.18-3.74) 08/22/20 21:05 [place] # (Auto) 1.05 K/mm3 (0.24-0.36) H 08/22/20 21:05 Eos # (Auto) 0.07 K/mm3 (0.04-0.36) 08/22/20 21:05 Baso # (Auto) 0.02 K/mm3 (0.01-0.08) 08/22/20 21:05 - Allergies Allergies/Adverse Reactions: Allergies Allergy/AdvReac Type Severity Reaction Status Date / Time No Known Allergies Allergy Verified 10/18/18 01:30 - Blood Blood Available: No - Acknowledgements Anesthesia Type Planned: Epidural Pt an Appropriate Candidate for the Planned Anesthesia: Yes Alternatives and Risks of Anesthesia Discussed w Pt/Guardian: Yes Pt/Guardian Understands and Agrees with Anesthesia Plan: Yes PreAnesthesia Questionnaire HEENT History: Reports: Impaired Vision Other HEENT History: wears glasses Cardiovascular History: Reports: None Respiratory History: Reports: None Gastrointestinal History: Reports: GERD (with preg) : 2 Para: 1 - Past Surgical History Female Surgical History: Reports: Section Musculoskeletal Surgical History: Reports: Other (See Below) Other Musculoskeletal Surgeries/Procedures:: Pilonidal cyst removal 2006 - SUBSTANCE USE Tobacco Use Status *Q: Never Tobacco User Tobacco Use Within Last Twelve Months: No Second Hand Smoke Exposure: No Days Per Week of Alcohol Use: 0 Recreational Drug Use History: No - HOME MEDS Home Medications: Home Meds Calcium Carbonate/Vitamin D3 [Calcium 500-Vit D3 125 Caplet] 1 tab PO DAILY [History] Docusate Sodium [Colace] 1 tab PO DAILY 10/18/18 [History] Pnv No.95/Ferrous Fum/Folic AC [ Tablet] 1 tab PO DAILY 10/18/18 [History] Acetaminophen/oxyCODONE [Percocet 325-5 MG] 1 - 2 tab PO Q4H PRN #25 tablet 10/19/18 [Rx] Ibuprofen [Motrin] 600 mg PO Q6H PRN tablet 10/19/18 [Rx] - CURRENT (IN HOUSE) MEDS Current Meds: Current Medications Calcium Carbonate/Glycine (Tums) 1,000 mg PO Q2H PRN PRN Reason: Indigestion Diphenhydramine HCl (Benadryl) 25 mg IVPUSH Q6H PRN PRN Reason: pruritis Ephedrine Sulfate (Ephedrine Sulfate) 5 mg IVPUSH ASDIRECTED PRN PRN Reason: Hypotension Fentanyl (Sublimaze) 100 mcg EPIDUR Q3H PRN PRN Reason: Pain Fentanyl/Bupivacaine HCl (Fentanyl/Bupivacaine/Ns 2 Mcg-0.125% 100 Ml) 100 ml EPIDUR ASDIRECTED PRN PRN Reason: Pain Lactated Ringer's (Ringers, Lactated) 1,000 mls @ 100 mls/hr IV ASDIRECTED AMEE Oxytocin/Lactated Ringer's (Pitocin In Lr 10 Units/1,000 Ml) 10 unit in 1,000 mls @ 500 mls/hr IV .CONTINUOUS AMEE Nalbuphine HCl (Nubain) 10 mg IVPUSH Q2H PRN PRN Reason: Pain Ondansetron HCl (Zofran) 4 mg IVPUSH Q4H PRN PRN Reason: Nausea/Vomiting Sodium Chloride (Saline Flush) 10 ml FLUSH ASDIRECTED PRN PRN Reason: Keep Vein Open Discontinued Medications Lidocaine HCl (Xylocaine 1%) 50 ml INJECT ONETIME ONE Stop: 08/22/20 20:54
[2020-08-23] MEDS ORDERED: Bupivacaine 0.25% 10 ML SDV ONE
[2020-08-23] MEDS: Lactated Ringers 1,000 ML IV SCH (00:03)
[2020-08-23] MEDS ORDERED: Lidocaine 1% 50 ML MDV ONE (04:23)
--- NOTE | 2020-08-23 05:11 | PCM.DEL ---
L & D Note - General Info Date of Service: 08/23/20 Mother's Due Date: 08/26/20 - Delivery Note Labor: Spontaneous Delivery Outcome: Livebirth Infant Delivery Method: Spontaneous Vaginal Delivery-Single Presentation: Right Occiput Anterior (ADEN) Nuchal Cord: Present (x1), Reduced (Prior to delivery) Prep: Povidone-Iodine (Betadine Anesthesia Type: Epidural Amniotic Fluid Description: Clear Episiotomy Type: None Laceration: 3rd Degree (partial anterior capsular tear, repaired with 2-0 Vicryl Rapide, remainder of tear repaired with 3-0 Vicryl) Suture type: Vicryl Suture size: 2-0 Placenta: Intact, Spontaneous Cord: 3 Vessels Estimated Blood Loss: 350 Resuscitation Needed: No [place]: Bulb Syringe, Stimulated, Warmed, [place] Used Provider: Mervin Barlow Score 1 min: 8 Score 5 min: 9 Second Stage Interventions: Reports: Pushing Effectively, Pushing, Stirrups/Leg Supports Delivery Comments (Free Text/Narrative):: Stage I: Saritha Yeboah was admitted for spontaneous rupture of membranes. On admission her cervix was dilated to 4 cm. She was GBS negative. She had spontaneous rupture membranes prior to arrival at labor and delivery with clear fluid. She was given an epidural for anesthesia. She progressed to complete and pushing. Stage II: On 08/23/2020 she had a normal vaginal delivery after section of a live male at 04:07. Apgars of 8 & 9. Weight of 3600 g (7 lbs 15.0 oz). Length of 20.5 inches. There was a single nuchal cord that was reduced prior to delivery. Infant was delivered in ADEN position. The cord was doubly clamped and cut by other the infant. Infant was placed on mother's abdomen. Stage III: She had a spontaneous delivery of an intact placenta in [place] presentation. Three vessel cord. She was given pitocin and fundal massage. She had a partial third-degree laceration with a tear of only the anterior compartment of the external anal sphincter muscle capsule. The muscle capsule was repaired with a single [id number] suture with 2-0 Vicryl Rapide. The remainder of the repair was completed with 3-0 Vicryl without difficulty. Mom and baby were stable to recovery. EBL of 300 mL. Mervin Barlow MD 5:06 AM 08/23/2020 - General Info Date of Service: 08/23/20 - Patient Data Vitals - Most Recent: Last Vital Signs Temp 36.1 C 08/22/20 20:19 Pulse 92 08/22/20 20:19 Resp 16 08/22/20 20:19 BP 91/59 L 08/22/20 20:19 Pulse Ox 100 08/22/20 20:19 Weight - Most Recent: 85.729 kg I&O - Last 24 Hours: Intake & Output 08/22/20 08/22/20 08/23/20 14:59 22:59 06:59 Intake Total 3000 Balance 3000 Lab Results Last 24 Hours: Laboratory Results - last 24 hr 08/22/20 08/22/20 Range/Units 21:05 21:05 WBC 17.10 H (3.98-10.04) K/mm3 RBC 4.24 (3.98-5.22) M/mm3 Hgb 12.3 D (11.2-15.7) gm/dl Hct 37.1 (34.1-44.9) % MCV 87.5 (79.4-94.8) fl MCH 29.0 (25.6-32.2) pg MCHC 33.2 (32.2-35.5) g/dl RDW Std Deviation 43.3 (36.4-46.3) fL Plt Count 252 (182-369) K/mm3 MPV 9.8 (9.4-12.3) fl Neut % (Auto) 72.7 H (34.0-71.1) % Lymph % (Auto) 20.1 (19.3-51.7) % [place] % (Auto) 6.1 (4.7-12.5) % Eos % (Auto) 0.4 L (0.7-5.8) Baso % (Auto) 0.1 (0.1-1.2) % Neut # (Auto) 12.43 H (1.56-6.13) K/mm3 Lymph # (Auto) 3.43 (1.18-3.74) K/mm3 [place] # (Auto) 1.05 H (0.24-0.36) K/mm3 Eos # (Auto) 0.07 (0.04-0.36) K/mm3 Baso # (Auto) 0.02 (0.01-0.08) K/mm3 RPR Non-reactive (NONREACTIVE) Med Orders - Current: Current Medications Calcium Carbonate/Glycine (Tums) 1,000 mg PO Q2H PRN PRN Reason: Indigestion Diphenhydramine HCl (Benadryl) 25 mg IVPUSH Q6H PRN PRN Reason: pruritis Ephedrine Sulfate (Ephedrine Sulfate) 5 mg IVPUSH ASDIRECTED PRN PRN Reason: Hypotension Fentanyl (Sublimaze) 100 mcg EPIDUR Q3H PRN PRN Reason: Pain Last Admin: 08/22/20 22:00 Dose: 100 mcg Documented by: Fentanyl/Bupivacaine HCl (Fentanyl/Bupivacaine/Ns 2 Mcg-0.125% 100 Ml) 100 ml EPIDUR ASDIRECTED PRN PRN Reason: Pain Last Admin: 08/22/20 22:00 Dose: 100 ml Documented by: Lactated Ringer's (Ringers, Lactated) 1,000 mls @ 100 mls/hr IV ASDIRECTED AMEE Last Admin: 08/23/20 00:03 Dose: 100 mls/hr Documented by: Oxytocin/Lactated Ringer's (Pitocin In Lr 10 Units/1,000 Ml) 10 unit in 1,000 mls @ 500 mls/hr IV .CONTINUOUS AMEE Last Admin: 08/23/20 04:10 Dose: 500 mls/hr Documented by: Nalbuphine HCl (Nubain) 10 mg IVPUSH Q2H PRN PRN Reason: Pain Ondansetron HCl (Zofran) 4 mg IVPUSH Q4H PRN PRN Reason: Nausea/Vomiting Sodium Chloride (Saline Flush) 10 ml FLUSH ASDIRECTED PRN PRN Reason: Keep Vein Open Discontinued Medications Lidocaine HCl (Xylocaine 1%) 50 ml INJECT ONETIME ONE Stop: 08/22/20 20:54 Lidocaine HCl (Xylocaine 1%) Confirm Administered Dose 50 ml .ROUTE .STK-MED ONE Stop: 08/23/20 04:24 - Problem List & Annotations (1) History of section complicating SNOMED Code(s): 868730455, 511536650 Code(s): O34.219 - MATERNAL CARE FOR UNSP TYPE SCAR FROM PREVIOUS DEL Status: Acute Current Visit: Yes (2) History of section SNOMED Code(s): 016052622 Code(s): Z98.891 - HISTORY OF UTERINE SCAR FROM PREVIOUS SURGERY Status: Acute Current Visit: Yes (3) 39 weeks gestation of SNOMED Code(s): 18787644 Code(s): Z3A.39 - 39 WEEKS GESTATION OF Status: Acute Current Visit: No (4) Vaginal delivery SNOMED Code(s): 497339522 Code(s): O80 - ENCOUNTER FOR FULL-TERM UNCOMPLICATED DELIVERY Status: Acute Current Visit: Yes (5) Vaginal delivery following previous section, delivered SNOMED Code(s): 586695722 Code(s): O34.219 - MATERNAL CARE FOR UNSP TYPE SCAR FROM PREVIOUS DEL Status: Acute Current Visit: Yes (6) Third degree laceration of perineum, type 3a SNOMED Code(s): 634728782 Code(s): O70.21 - THIRD DEGREE PERINEAL LACERATION DURING DELIVERY, IIIA Status: Acute Current Visit: Yes - Problem List Review Problem List Initiated/Reviewed/Updated: Yes - My Orders Last 24 Hours: My Active Orders 08/22/20 20:19 Resuscitation Status Routine 08/22/20 20:53 Patient Status [ADT] Routine Activity as Tolerated [RC] PFP Communication Order [RC] ASDIRECTED Heart Tones [RC] ASDIRECTED Notify Provider [RC] PFP Notify Provider [RC] PRN Peripheral IV Care [RC] Q2HR Urinary Catheter Assessment [RC] ASDIRECTED Vital Signs [RC] 09,15,21,03 Calcium Carbonate [Tums] 1,000 mg PO Q2H PRN Nalbuphine [Nubain] 10 mg IVPUSH Q2H PRN Ondansetron [Zofran] 4 mg IVPUSH Q4H PRN Sodium Chloride 0.9% [Saline Flush] 10 ml FLUSH ASDIRECTED PRN Electronic Heart Tones Ext w TOCO [WOMSER] Routine Electronic Heart Tones Internal [WOMSER] Per Unit Routine Peripheral IV Insertion Adult [OM.PC] Routine 08/22/20 21:00 Lactated Ringers [Ringers, Lactated] 1,000 ml IV ASDIRECTED Oxytocin/Lactated Ringers [Pitocin in LR 10 Units/1,000 ML] 10 unit in 1,000 ml IV .CONTINUOUS 08/23/20 04:49 Patient Status Manage Transfer [TRANSFER] Routine 08/23/20 Breakfast Regular Diet [DIET] - Plan Plan:: Saritha Yeboah is a 30-year-old now -0-0-2 female status post vaginal delivery after section, PPD #0, complicated by partial third-degree anterior capsular tear during delivery, history of section with previous and history of COVID-19 infection during this * Admit to inpatient following vaginal delivery after section * Patient with partial third-degree anterior capsular tear that was repaired with 2-0 Vicryl repeated. We will start the patient on Colace 100 mg twice daily and use milk of magnesia as needed to ensure that the patient is having soft stools. Discussed with patient that she should try to have soft stools to help with bowel movements * Continue Pitocin per unit protocol following delivery of placenta and lactated Ringer's until tolerating regular diet * Regular diet * Vitals per unit routine * Ibuprofen and Tylenol for pain control * Assist with breast-feeding as needed * Continue to monitor lochia * Anticipate discharge home on day #1 or #2 depending on status Mervin Barlow MD 5:06 AM 08/23/2020
[2020-08-23] MEDS ORDERED: Witch Hazel Medicated Pads 40/Jar TOP PRN (05:19)
[2020-08-23] MEDS ORDERED: Benzocaine/Menthol 20%-0.5% Spray 56 GM Canister TOP PRN (05:19)
[2020-08-23] MEDS ORDERED: Hydrocortisone Acetate 25 MG Supp RECTAL PRN (05:19)
[2020-08-23] MEDS ORDERED: Magnesium Hydroxide 400 MG/5 ML Susp 30 ML Cup PO PRN (05:19)
[2020-08-23] MEDS ORDERED: Oxytocin/Lactated Ringers 10 UNIT/1,000 ML BAG IV SCH (05:19)
[2020-08-23] MEDS ORDERED: Acetaminophen 325 MG Tab PO PRN (05:19)
[2020-08-23] MEDS: Ibuprofen 600 MG Tab PO PRN ×2 (05:33→16:47)
[2020-08-23] MEDS: Docusate Sodium 100 MG Cap PO SCH ×2 (10:35→20:25)
[2020-08-23] MEDS: Prenatal Multivitamin with Calcium/Folic Acid/Iron Tab PO SCH (10:35)
[2020-08-23] MEDS: Ferrous Sulfate 324 MG Tab.EC PO SCH (10:35)
--- NOTE | 2020-08-23 18:21 | PCM48HPAN ---
Post Anesthesia Note - EVALUATION WITHIN 48HRS OF ANESTHETIC Vital Signs in Normal Range: Yes Patient Participated in Evaluation: Yes Respiratory Function Stable: Yes Airway Patent: Yes Cardiovascular Function Stable: Yes Hydration Status Stable: Yes Pain Control Satisfactory: Yes Nausea and Vomiting Control Satisfactory: Yes Mental Status Recovered: Yes Vital Signs: Last Vital Signs Temp 98.8 F 08/23/20 15:17 Pulse 101 H 08/23/20 15:17 Resp 16 08/23/20 15:17 BP 94/54 L 08/23/20 15:17 Pulse Ox 97 08/23/20 15:17
[2020-08-24] MEDS: Ibuprofen 600 MG Tab PO PRN ×2 (01:16→08:38)
[2020-08-24] MEDS: Prenatal Multivitamin with Calcium/Folic Acid/Iron Tab PO SCH (08:38)
[2020-08-24] MEDS: Ferrous Sulfate 324 MG Tab.EC PO SCH (08:38)
[2020-08-24] MEDS: Docusate Sodium 100 MG Cap PO SCH (08:38)
--- NOTE | 2020-08-24 08:50 | PCM.SN.2 ---
- Free Text/Narrative Note: Post Progress Note PPD #1 Subjective: Doing well overall. Ambulating without difficulty. Lochia minimal. Voiding without difficulty. Has not had a bowel movement at this time. Tolerating regular diet without nausea or vomiting. Pain controlled with oral medications. Breast-feeding with minimal difficulty. Objective: Vitals: Vital Signs - 24 hr 08/23/20 08/23/20 08/23/20 09:21 15:17 20:08 Temperature 36.8 C 37.1 C 36.9 C Pulse, 98 101 H 100 Peripheral Respiratory 16 16 16 Rate Blood Pressure 113/61 94/54 L 102/49 L O2 Sat by Pulse 98 97 94 L Oximetry 08/24/20 02:58 Temperature 36.7 C Pulse, 91 Peripheral Respiratory 16 Rate Blood Pressure 107/65 O2 Sat by Pulse 96 Oximetry Physical Exam General: Alert and oriented, no acute distress Lungs: Clear to auscultation bilaterally Heart: Regular rate and rhythm Abdomen: Soft, minimal appropriate tenderness, non-distended, fundus midline, nontender, and at the umbilicus Extremities: No edema Laboratory Tests 08/22/20 08/22/20 Range/Units 21:05 21:05 WBC 17.10 H (3.98-10.04) K/mm3 RBC 4.24 (3.98-5.22) M/mm3 Hgb 12.3 D (11.2-15.7) gm/dl Hct 37.1 (34.1-44.9) % MCV 87.5 (79.4-94.8) fl MCH 29.0 (25.6-32.2) pg MCHC 33.2 (32.2-35.5) g/dl RDW Std Deviation 43.3 (36.4-46.3) fL Plt Count 252 (182-369) K/mm3 MPV 9.8 (9.4-12.3) fl Neut % (Auto) 72.7 H (34.0-71.1) % Lymph % (Auto) 20.1 (19.3-51.7) % [place] % (Auto) 6.1 (4.7-12.5) % Eos % (Auto) 0.4 L (0.7-5.8) Baso % (Auto) 0.1 (0.1-1.2) % Neut # (Auto) 12.43 H (1.56-6.13) K/mm3 Lymph # (Auto) 3.43 (1.18-3.74) K/mm3 [place] # (Auto) 1.05 H (0.24-0.36) K/mm3 Eos # (Auto) 0.07 (0.04-0.36) K/mm3 Baso # (Auto) 0.02 (0.01-0.08) K/mm3 RPR Non-reactive (NONREACTIVE) ASSESSMENT: 30-year-old female -0-0-2 s/p vaginal delivery after section PPD #1, complicated by history of section and COVID-19 infection during PLAN: Doing well Breast-feeding with minimal difficulty. Assist as needed Lochia minimal. Continue to monitor for appropriate lochia. Continue routine care Continue Colace for softening of stools for bowel regimen and add milk of magnesia or MiraLAX as needed Anticipate discharge home today Mervin Barlow MD 8:46 AM 08/24/2020
--- NOTE | 2020-08-24 08:55 | PCM.DCSUM1 ---
Discharge Summary - Hospital Course Free Text/Narrative:: - General Info Date of Service: 08/23/20 Mother's Due Date: 08/26/20 - Delivery Note Labor: Spontaneous Delivery Outcome: Livebirth Infant Delivery Method: Spontaneous Vaginal Delivery-Single Presentation: Right Occiput Anterior (ADEN) Nuchal Cord: Present (x1), Reduced (Prior to delivery) Prep: Povidone-Iodine (Betadine Anesthesia Type: Epidural Amniotic Fluid Description: Clear Episiotomy Type: None Laceration: 3rd Degree (partial anterior capsular tear, repaired with 2-0 Vicryl Rapide, remainder of tear repaired with 3-0 Vicryl) Suture type: Vicryl Suture size: 2-0 Placenta: Intact, Spontaneous Cord: 3 Vessels Estimated Blood Loss: 350 Resuscitation Needed: No : Bulb Syringe, Stimulated, Warmed, [place] Used Provider: Mervin Barlow Score 1 min: 8 Score 5 min: 9 Second Stage Interventions: Reports: Pushing Effectively, Pushing, Stirrups/Leg Supports Delivery Comments (Free Text/Narrative):: Stage I: Saritha Yeboah was admitted for spontaneous rupture of membranes. On admission her cervix was dilated to 4 cm. She was GBS negative. She had spontaneous rupture membranes prior to arrival at labor and delivery with clear fluid. She was given an epidural for anesthesia. She progressed to complete and pushing. Stage II: On 08/23/2020 she had a normal vaginal delivery after section of a live male infant at 04:07. Apgars of 8 & 9. Weight of 3600 g (7 lbs 15.0 oz). Length of 20.5 inches. There was a single nuchal cord that was reduced prior to delivery. was delivered in ADEN position. The cord was doubly clamped and cut by other the infant. Infant was placed on mother's abdomen. Stage III: She had a spontaneous delivery of an intact placenta in [place] presentation. Three vessel cord. She was given pitocin and fundal massage. She had a partial third-degree laceration with a tear of only the anterior compartment of the external anal sphincter muscle capsule. The muscle capsule was repaired with a single [id number] suture with 2-0 Vicryl Rapide. The remainder of the repair was completed with 3-0 Vicryl without difficulty. Mom and baby were stable to recovery. EBL of 300 mL. Diagnosis: Stroke: No - Discharge Data Discharge Date: 08/24/20 Discharge Disposition: Home, Self-Care 01 Condition: Good - Referral to Home Health Primary Care Physician: Alyssa Hopkins MD - Discharge Diagnosis/Problem(s) (1) History of section complicating SNOMED Code(s): 005917797, 898679684 ICD Code: O34.219 - MATERNAL CARE FOR UNSP TYPE SCAR FROM PREVIOUS DEL Status: Acute Current Visit: Yes (2) History of section SNOMED Code(s): 019926621 ICD Code: Z98.891 - HISTORY OF UTERINE SCAR FROM PREVIOUS SURGERY Status: Acute Current Visit: Yes (3) 39 weeks gestation of SNOMED Code(s): 59347323 ICD Code: Z3A.39 - 39 WEEKS GESTATION OF Status: Acute Current Visit: No (4) Vaginal delivery SNOMED Code(s): 457600365 ICD Code: O80 - ENCOUNTER FOR FULL-TERM UNCOMPLICATED DELIVERY Status: Acute Current Visit: Yes (5) Vaginal delivery following previous section, delivered SNOMED Code(s): 987351129 ICD Code: O34.219 - MATERNAL CARE FOR UNSP TYPE SCAR FROM PREVIOUS DEL Status: Acute Current Visit: Yes (6) Third degree laceration of perineum, type 3a SNOMED Code(s): 610051040 ICD Code: O70.21 - THIRD DEGREE PERINEAL LACERATION DURING DELIVERY, IIIA Status: Acute Current Visit: Yes - Patient Summary/Data Complications: None Consults: None Hospital Course: Saritha Yeboah was admitted for spontaneous rupture membranes with trial of labor after section. She had spontaneous rupture of membranes with clear fluid. On admission her cervix was dilated to 4 cm. She was GBS negative. She was given an epidural for anesthesia. She progressed to complete and began pushing. On 08/23/2020 she had a normal vaginal delivery after section of a live male at 04:07. Apgars of 8 and 9. Weight of 3600 g (7 pounds 15.0 ounces). Her delivery was complicated by a partial third- degree laceration that was repaired in normal fashion. Her course was uneventful. Her pain was well controlled and she had minimal lochia. She was ambulating, tolerating a regular diet and voiding normally. She was breast- feeding with minimal difficulty. She was afebrile and her hematocrit was 37.1 on admission. She desired to be discharged home on the morning of PPD #1. Her blood type is A+. - Patient Instructions Diet: Regular Diet as Tolerated Activity: Apply Ice, As Tolerated Activity, Other: Nothing in the vagina for 6 weeks Driving: May Drive Today Showering/Bathing: May Shower Notify Provider of: Fever, Increased Pain, Swelling and Redness, Drainage, Nausea and/or Vomiting Other/Special Instructions: Please contact your physician's office if you have heavy vaginal bleeding enough to soak a pad in less than an hour for several hours. Monitor for any signs of an infection in the breasts with severe pain or redness of the breast. - Discharge Plan *PRESCRIPTION DRUG MONITORING PROGRAM REVIEWED*: Not Applicable *COPY OF PRESCRIPTION DRUG MONITORING REPORT IN PATIENT LORI: Not Applicable Home Medications: Home Meds Calcium Carbonate/Vitamin D3 [Calcium 500-Vit D3 125 Caplet] 1 tab PO DAILY 10/18/18 [History] Docusate Sodium [Colace] 1 tab PO DAILY 10/18/18 [History] Pnv No.95/Ferrous Fum/Folic AC [ Tablet] 1 tab PO DAILY 10/18/18 [History] Ibuprofen [Motrin] 600 mg PO Q6H PRN tablet 10/19/18 [Rx] Acetaminophen [Tylenol] 650 mg PO Q6H PRN tablet 08/24/20 [Rx] Benzocaine/Menthol [Dermoplast Pain Relief [place]] 1 spray TOP ASDIRECTED PRN canister 08/24/20 [Rx] Ferrous Sulfate 324 mg PO WITHBREAKFAST tab.ec 08/24/20 [Rx] Hydrocortisone Acetate [Anucort-HC] 25 mg RECTAL BID PRN supp 08/24/20 [Rx] Magnesium Hydroxide [Milk of Magnesia] 30 ml PO BEDTIME PRN cup 08/24/20 [Rx] darby Miladis [Tucks] 1 pad TOP ASDIRECTED PRN pad 08/24/20 [Rx] Patient Handouts: Care of a Perineal Tear, Care After Vaginal Delivery Referrals: Alyssa Hopkins MD [Primary Care Provider] - (Follow up in 3-6 weeks for routine postartum visit or earlier as needed.) - Discharge Summary/Plan Comment DC Time >30 min.: No - Patient Data Vitals - Most Recent: Last Vital Signs Temp 36.7 C 08/24/20 02:58 Pulse 91 08/24/20 02:58 Resp 16 08/24/20 02:58 BP 107/65 08/24/20 02:58 Pulse Ox 96 08/24/20 02:58 Weight - Most Recent: 85.729 kg I&O - Last 24 hours: Intake & Output 08/23/20 08/24/20 08/24/20 22:59 06:59 14:59 Intake Total 0 Balance 0 Med Orders - Current: Current Medications Acetaminophen (Tylenol) 650 mg PO Q6H PRN PRN Reason: mild pain or fever Benzocaine/Menthol (Dermoplast Pain Relief [place]) 0 gm TOP ASDIRECTED PRN PRN Reason: Perineal Comfort Measure Last Admin: 08/23/20 05:34 Dose: 1 can Documented by: Docusate Sodium (Colace) 100 mg PO BID [facility] Last Admin: 08/24/20 08:38 Dose: 100 mg Documented by: Ferrous Sulfate (Ferrous Sulfate) 324 mg PO WITHBREAKFAST [facility] Last Admin: 08/24/20 08:38 Dose: 324 mg Documented by: Hydrocortisone Acetate (Anucort-Hc) 25 mg RECTAL BID PRN PRN Reason: Hemorrhoid pain Oxytocin/Lactated Ringer's (Pitocin In Lr 10 Units/1,000 Ml) 10 unit in 1,000 mls @ 100 mls/hr IV TITRATE AMEE; Protocol Ibuprofen (Motrin) 600 mg PO Q6H PRN PRN Reason: Mild pain or fever Last Admin: 08/24/20 08:38 Dose: 600 mg Documented by: Magnesium Hydroxide (Milk Of Magnesia) 30 ml PO BEDTIME PRN PRN Reason: Constipation Prenat Multivit/[place]/Iron/Folic Ac ( Plus Iron) 1 each PO DAILY [facility] Last Admin: 08/24/20 08:38 Dose: 1 each Documented by: Darby Bustillos ([place]) 1 pad TOP ASDIRECTED PRN PRN Reason: Perineal Comfort Measure Last Admin: 08/23/20 05:34 Dose: 1 carton Documented by: Discontinued Medications Calcium Carbonate/Glycine (Tums) 1,000 mg PO Q2H PRN PRN Reason: Indigestion Diphenhydramine HCl (Benadryl) 25 mg IVPUSH Q6H PRN PRN Reason: pruritis Ephedrine Sulfate (Ephedrine Sulfate) 5 mg IVPUSH ASDIRECTED PRN PRN Reason: Hypotension Fentanyl (Sublimaze) 100 mcg EPIDUR Q3H PRN PRN Reason: Pain Last Admin: 08/22/20 22:00 Dose: 100 mcg Documented by: Fentanyl/Bupivacaine HCl (Fentanyl/Bupivacaine/Ns 2 Mcg-0.125% 100 Ml) 100 ml EPIDUR ASDIRECTED PRN PRN Reason: Pain Last Admin: 08/22/20 22:00 Dose: 100 ml Documented by: Lactated Ringer's (Ringers, Lactated) 1,000 mls @ 100 mls/hr IV ASDIRECTED AMEE Last Admin: 08/23/20 00:03 Dose: 100 mls/hr Documented by: Oxytocin/Lactated Ringer's (Pitocin In Lr 10 Units/1,000 Ml) 10 unit in 1,000 mls @ 500 mls/hr IV .CONTINUOUS AMEE Last Admin: 08/23/20 04:10 Dose: 500 mls/hr Documented by: Lidocaine HCl (Xylocaine 1%) 50 ml INJECT ONETIME ONE Stop: 08/22/20 20:54 Last Admin: 08/23/20 16:39 Dose: Not Given Documented by: Lidocaine HCl (Xylocaine 1%) Confirm Administered Dose 50 ml .ROUTE .STK-MED ONE Stop: 08/23/20 04:24 Last Admin: 08/23/20 16:39 Dose: Not Given Documented by: Nalbuphine HCl (Nubain) 10 mg IVPUSH Q2H PRN PRN Reason: Pain Ondansetron HCl (Zofran) 4 mg IVPUSH Q4H PRN PRN Reason: Nausea/Vomiting Sodium Chloride (Saline Flush) 10 ml FLUSH ASDIRECTED PRN PRN Reason: Keep Vein Open
== END 2020-08-24 12:10 | disposition home or self-care (01) | DRG 542 ==
LOC: JD.OBCHECK 20:09 → JD.OB 20:09 → JD.OBCHECK 20:53 → JD.OB 20:53 → OBSVTOIN 08-23 04:07
PROVIDERS: ADMIT Obstetrics & Gynecology; ATTEND Obstetrics & Gynecology
PROC: 10E0XZZ Delivery of Products of Conception, External Approach (ICD-10-PCS; principal; 2020-08-23)
PROC: 0DQR0ZZ Repair Anal Sphincter, Open Approach (ICD-10-PCS; 2020-08-23)
PROC: 3E0R3BZ Introduction of Anesthetic Agent into Spinal Canal, Percutaneous Approach (ICD-10-PCS; 2020-08-23)
PROC: 00HU33Z Insertion of Infusion Device into Spinal Canal, Percutaneous Approach (ICD-10-PCS; 2020-08-23)
DX: O69.1XX0 Labor and delivery complicated by cord around neck, with compression, not applicable or unspecified (principal); Z3A.39 39 weeks gestation of pregnancy; Z37.0 Single live birth; O70.21 Third degree perineal laceration during delivery, IIIa; Z86.16 Personal history of COVID-19
CPT/HCPCS: 01967; 36415; 51701; 51702; 59025; 59409; 85025; 86592; A9270-GY; J2590; J3010; J3490; J7120

== ENCOUNTER 2024-12-04 01:31 | Inpatient (IN) | payer BC, OTHER ==
[~2024-12-04 01:31] MED LIST: Bupivacaine 0.25% 10 ML SDV ONE
[2024-12-04] MEDS ORDERED: Ondansetron 4 MG/2 ML SDV IVPUSH PRN (02:28)
[2024-12-04] MEDS ORDERED: Calcium Carbonate 500 MG Tab.Chew PO PRN (02:28)
[2024-12-04] MEDS ORDERED: Nalbuphine 10 MG/1 ML Vial IVPUSH PRN (02:28)
[2024-12-04] MEDS ORDERED: Lidocaine 1% 50 ML MDV INJECT PRN (02:28)
[2024-12-04] MEDS ORDERED: Sodium Chloride 0.9% 10 ML Syringe FLUSH PRN (02:28)
[2024-12-04] MEDS ORDERED: Oxytocin/0.9 % Sodium Chloride 30 UNIT/500 ML BAG IV SCH (02:30)
[2024-12-04 02:46] LABS: BASOPHILS PERCENT AUTO 0.3 % (0.0-1.0); EOSINOPHILS ABSOLUTE AUTO 0.1 K/mm3 (0.0-0.4); EOSINOPHILS PERCENT AUTO 0.6 % (0.0-6.0); HEMATOCRIT 35.8 % (37.0-47.0); HEMOGLOBIN 12.1 gm/dl (12.0-16.0); IMMATURE GRAN ABSOLUTE AUTO 0.06 K/mm3 (0.00-0.05); IMMATURE GRAN PERCENT AUTO 0.8 % (0.0-0.4); LYMPHOCYTES ABSOLUTE AUTO 2.3 K/mm3 (1.0-4.8); LYMPHOCYTES PERCENT AUTO 29.2 % (24.0-44.0); MEAN CORPUSCULAR HEMOGLOBIN 30.1 pg (28.0-32.0); MEAN CORPUSCULAR HGB CONC 33.8 g/dl (32.0-36.0); MEAN CORPUSCULAR VOLUME 89.1 fl (83.0-99.0); MONOCYTES ABSOLUTE AUTO 0.4 K/mm3 (0.0-0.8); MONOCYTES PERCENT AUTO 5.3 % (0.0-8.0); NEUTROPHILS ABSOLUTE AUTO 5.1 K/mm3 (1.8-7.7); NEUTROPHILS PERCENT AUTO 63.8 % (41.0-71.0); PLATELET COUNT,PLT 187 K/mm3 (150-400); RED BLOOD CELL COUNT 4.02 M/mm3 (4.10-5.30); WHITE BLOOD CELL COUNT,WBC 7.99 K/mm3 (3.9-11.3)
[2024-12-04] MEDS: Lactated Ringers 1,000 ML IV SCH (04:38)
[2024-12-04] MEDS: Oxytocin/0.9 % Sodium Chloride 30 UNIT/500 ML BAG IV SCH (05:08)
[2024-12-04] MEDS ORDERED: diphenhydrAMINE 50 MG/ML SDV IVPUSH PRN (07:58)
[2024-12-04] MEDS ORDERED: fentaNYL 100 MCG/2 ML SDV EPIDUR PRN (07:58)
[2024-12-04] MEDS ORDERED: ePHEDrine 50 MG/ML SDV IVPUSH PRN (07:58)
[2024-12-04] MEDS: Bupivacaine/fentaNYL/NS 100 ML Bag EPIDUR PRN (08:11)
[2024-12-04] MEDS ORDERED: Acetaminophen 325 MG Tab PO PRN (13:59)
[2024-12-04] MEDS ORDERED: Benzocaine/Menthol 20%-0.5% Spray 78 GM Cannister TOP PRN (13:59)
[2024-12-04] MEDS ORDERED: Docusate Sodium 100 MG Cap PO PRN (13:59)
[2024-12-04] MEDS ORDERED: Witch Hazel Medicated Pads 40/Jar TOP PRN (13:59)
[2024-12-04] MEDS: Ibuprofen 600 MG Tab PO SCH ×2 (16:52→23:52)
[2024-12-05] MEDS ORDERED: Ibuprofen 600 MG Tab PO SCH (09:00)
[2024-12-05] MEDS ORDERED: Sertraline 50 MG Tab PO SCH (09:00)
== END 2024-12-05 11:15 | disposition home or self-care (01) | DRG 807 ==
LOC: JD.OBCHECK 01:31 → JD.OB 01:38 → JD.OBCHECK 02:28 → JD.OB 02:28 → OBSVTOIN 10:16 → JD.OB 10:17
PROVIDERS: ADMIT Obstetrics & Gynecology; ATTEND Obstetrics & Gynecology
PROC: 3E033VJ Introduction of Other Hormone into Peripheral Vein, Percutaneous Approach (ICD-10-PCS; principal; 2024-12-04)
PROC: 0KQM0ZZ Repair Perineum Muscle, Open Approach (ICD-10-PCS; principal; 2024-12-04)
PROC: 3E0R3BZ Introduction of Anesthetic Agent into Spinal Canal, Percutaneous Approach (ICD-10-PCS; principal; 2024-12-04)
PROC: 10E0XZZ Delivery of Products of Conception, External Approach (ICD-10-PCS; principal; 2024-12-04)
DX: O42.92 Full-term premature rupture of membranes, unspecified as to length of time between rupture and onset of labor (principal); Z37.0 Single live birth; O34.211 Maternal care for low transverse scar from previous cesarean delivery; O70.1 Second degree perineal laceration during delivery; Z3A.39 39 weeks gestation of pregnancy; Z86.16 Personal history of COVID-19; Z98.890 Other specified postprocedural states; Z79.899 Other long term (current) drug therapy
CPT/HCPCS: 36415; 51702; 59025; 59409; 84112; 85025; 86592; 86850; 86900; 86901; A9270-GY; J0665; J3490; J7120; J7999